=== PATIENT | female | born 1935 | race Caucasian/White ===

== ENCOUNTER → 2017-01-20 | Outpatient (CLI) | payer MEDICARE, BC ==
[~2017-01-20] MED LIST: ALPR0.5T3 PO; ASPI81 PO; BIOTCAP PO; FISH1000 PO; FLUO20TA20 PO; LORTA5 PO; MELA5CAP2 PO; PRIL40CA PO; REDPOW2 PO; VITA-13 PO
--- NOTE | 2017-01-24 09:52 | RSPPFT ---
DATE OF PROCEDURE: 01/20/17 COMMENTS: VOLUMES DYNAMIC: FVC and FEV1 normal. STATIC: RV, TLC low normal. FLOWS: FEV1% normal; FEF 25-75 normal. DIFFUSION: Mildly reduced. FLOW VOLUME LOOP: Terminal airflow obstruction. IMPRESSION: Lung volumes are actually normal although on the low normal side. Diffusion is mildly reduced. There is no significant airways obstruction although, there is a slight flattening of the terminal portion of the flow volume loop. The clinical diagnosis is dyspnea. The reduction in diffusion is the only significant abnormality. Clinical correlation is required as to its significance.
== END ==
LOC: PHRSP 08:37
PROVIDERS: ATTEND Family Medicine
DX: R06.00 Dyspnea, unspecified (principal)
CPT/HCPCS: 94010; 94726; 94729

== ENCOUNTER 2017-02-19 13:45 | Emergency (ER) | payer MEDICARE, BC ==
[~2017-02-19] VITALS: Ht 162.6 cm; Wt 76.2 kg
[2017-02-19 13:49] VITALS: BP 149/83; PULSE 88; RESP 16; O2SAT 95
--- NOTE | 2017-02-19 14:42 | PD ---
HPI Chief Complaint: Injury Time Seen by Provider: 14:34 Travel History International Travel<30 days: No Contact w/Intl Traveler<30days: No Traveled to known affect area: No History of Present Illness HPI 81 year-old female presents to the emergency room for evaluation of left knee and howe pain after trip and fall yesterday. Patient tripped in her driveway on a ledge and fell forward landing on her bilateral knees and shins. She adamantly denies hitting her head or loss of consciousness. Denies neck pain, back pain, hip pain, upper extremity pain, or right leg pain. States pain is localized to the left distal knee. Pain is worse with any range of motion of the left knee and when she bears weight. It improves when still. She took Tylenol this morning for pain and states it improved her symptoms slightly. 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) Diabetes: No Diminished Hearing: No Endocrine: No Glaucoma: No Genitourinary: No Headaches: No Hepatitis: No Hiatal Hernia: No Hypertension: No Immune Disorder: No Kidney Stones: No Medical other: Yes (hx of reflux,stroke in 2002,arthritis,CLL) Musculoskeletal: Yes Neurologic: No Psychiatric: No Reproductive: No Respiratory: Yes ( asthma and hx of legionare disease) Immunizations Current: Yes Migraines: No Myocardial Infarction: No Radiation Therapy: No Renal Failure: No Seizures: No Sickle Cell Disease: No Sleep Apnea: No Thyroid Disease: No Ulcer: No Tetanus Vaccination: < 5 Years Influenza Vaccination: Yes Menopausal: Yes Past Surgical History Abdominal Surgery: No AICD: No Appendectomy: No Arteriovenous Shunt: No Cardiac Surgery: No Cholecystectomy: No Ear Surgery: No Endocrine Surgery: No Eye Surgery: Yes (margie cataract removal) Genitourinary Surgery: No Gynecologic Surgery: Yes (hysterectomy) Hysterectomy: Yes Insulin Pump: No Joint Replacement: No Oral Surgery: Yes (ROOT CANALS (2)) Pacemaker: No Thoracic Surgery: Yes (MASTECTOMY RIGHT BREAST) Other Surgery: Yes Social History Alcohol Use: Yes (OCCAISIONAL) Tobacco Use: No Substance Use: No Allergies-Medications (Allergen,Severity, Reaction): Coded Allergies: Iodine (Verified Allergy, Severe, CARDIAC, 02/19/17) Iopamidol (ISOVUE) (Verified Allergy, Unknown, PT PREMEDICATED FOR PRIOR RASH C IV CONT, 02/19/17) Reported Meds & Prescriptions Reported Meds & Active Scripts Active Hydrocodone/Acetaminophen 5 mg/325 mg 1 Tab 1 Tab PO Q6H PRN Reported Biotin 5000 (Biotin) Cap 1 Cap PO DAILY Vitamin D3 (Cholecalciferol) 1,000 Unit Chw 1,000 Unit PO DAILY Melatonin 5 Mg Cap 10 Mg PO HS Alprazolam 0.5 Mg Tab 0.5 Mg PO BID PRN Fluoxetine Hcl (Fluoxetine HCl) 20MG Cap 40 Mg PO DAILY Prilosec 40 mg cap (Omeprazole) 40 Mg Cap 40 Mg PO DAILY Red Yeast Rice (Red Yeast Rice Extract (Bulk)) Rice Pow 1 Tab PO DAILY Fish Oil 1,000 Mg Cap 1,000 Mg PO DAILY Aspirin 81 Mg Tab 81 Mg PO DAILY Review of Systems Except as stated in HPI: all other systems reviewed are Neg Physical Exam Narrative GENERAL: Well-nourished, well-developed female in no acute distress. Afebrile. SKIN: Focused skin assessment warm/dry. Large areas of ecchymosis on bilateral tibias. HEAD: Normocephalic. Atraumatic. EYES: No scleral icterus. No injection or drainage. NECK: Supple, trachea midline. No JVD or lymphadenopathy. CARDIOVASCULAR: Regular rate and rhythm without murmurs, gallops, or rubs. RESPIRATORY: Breath sounds equal bilaterally. No accessory muscle use. EXTREMITY: Left knee is tender to palpation at the anterior distal portion. Patient can flex the left knee to approximately 45. Moderate edema of the left anterior tibia. Moderately tender to palpation. 2+ dorsalis pedis pulse in the left leg. No tenderness to palpation of the ankle or foot. Full any motion of the left ankle, foot, and hip. Data Data Last Documented VS Vital Signs Date Time Temp Pulse Resp B/P Pulse Ox O2 Delivery O2 Flow Rate FiO2 02/19/17 14:05 20 02/19/17 13:49 88 149/83 95 Orders Knee, Complete (4vws) (02/19/17 ) Tibia/Fibula (Ap/Lat) (02/19/17 ) [facility] Medical Decision Making Medical Screen Exam Complete: Yes Emergency Medical Condition: Yes Medical Record Reviewed: Yes Differential Diagnosis Contusion versus fracture versus lesion versus sprain versus strain Narrative Course 81-year-old female presents to the emergency room for evaluation of left knee pain after trip and fall yesterday. Patient denies any other injury. Adamantly denies hitting her head or loss of consciousness. Physical exam reveals left knee is tender to palpation at the anterior distal portion. Patient can flex the left knee to approximately 45. Moderate edema of the left anterior tibia. Moderately tender to palpation. 2+ dorsalis pedis pulse in the left leg. No tenderness to palpation of the ankle or foot. Full any motion of the left ankle, foot, and hip. She has been able to ambulate short distances with a limp. X-ray is negative for acute bony abnormality. Patient was placed in Daniel wrap. She'll be discharged with orthopedic instructions and told to follow up with the primary care physician or return to the emergency room for worsening symptoms. She understands and agrees to plan. Diagnosis Primary Impression: Contusion of left lower leg Qualified Code: S80.12XA - Contusion of left lower leg, initial encounter Referrals: Primary Care Physician Patient Instructions: Contusion in Adults (ED), General Instructions Additional Instructions: Rest and drink plenty of fluids. Elevate to reduce swelling. Take Tylenol as directed, as needed for pain. Apply ice to the affected area for 20 minutes at a time, as needed for pain and swelling. Follow-up with a primary care physician. Return to the emergency room for worsening symptoms. Disposition: 01 DISCHARGE HOME Condition: Stable Ann Gonzalez February 19, 2017 14:42
--- NOTE | 2017-02-19 15:40 | RADHPO ---
EXAM DATE/TIME: 02/19/2017 14:51 [facility] COMPARISON: No previous studies available for comparison. INDICATIONS : Fell, left knee pain MEDICAL HISTORY : None. SURGICAL HISTORY : None. ENCOUNTER: Initial ACUITY: 1 day PAIN SCORE: 5/10 LOCATION: Left knee FINDINGS: Four view examination of the left knee demonstrates no evidence of fracture or dislocation. Bony min eralization is normal. The articular surfaces are intact. The suprapatellar soft tissues have a nor mal configuration. CONCLUSION: 1. No acute findings. Mild osteoarthritis and chondrocalcinosis. Edd Gunn MD on February 19, 2017 at 15:36 Board Certified Radiologist. This report was verified electronically.
--- NOTE | 2017-02-19 15:43 | RADHPO ---
EXAM DATE/TIME: 02/19/2017 14:57 [facility] COMPARISON: No previous studies available for comparison. INDICATIONS : Fell has left knee and upper lower leg pain MEDICAL HISTORY : Leukemia. Lupus. SURGICAL HISTORY : None. ENCOUNTER: Initial ACUITY: 1 day PAIN SCORE: 5/10 LOCATION: Left knee FINDINGS: Two view examination of the left tibia demonstrates no evidence of fracture or dislocation. Bony min eralization is normal. The soft tissue structures are intact. CONCLUSION: Normal examination for a patient of this age. Edd Gunn MD on February 19, 2017 at 15:40 Board Certified Radiologist. This report was verified electronically.
== END 2017-02-19 16:09 | disposition home or self-care (01) ==
LOC: PHEFT 13:45
DX: S80.12XA Contusion of left lower leg, initial encounter (principal); E78.00 Pure hypercholesterolemia, unspecified; Z86.73 Personal history of transient ischemic attack (TIA), and cerebral infarction without residual deficits; W17.89XA Other fall from one level to another, initial encounter; Y93.9 Activity, unspecified; Y92.9 Unspecified place or not applicable; Y99.9 Unspecified external cause status
CPT/HCPCS: 73564; 73590; 99283

== ENCOUNTER 2017-11-06 14:33 | Emergency (ER) | payer MEDICARE, BC ==
[2017-11-06] MEDS: PROCHLORPERAZINE INJ 10 MG/2 ML VIAL IVP (15:54)
[2017-11-06] MEDS: SODIUM CHLORIDE 0.9% FLUSH 10 ML FLUSH IVF (15:54)
[2017-11-06] MEDS: diphenhydrAMINE HCL 50 MG/ML VIAL IVP (15:54)
== END 2017-11-06 17:15 | disposition home or self-care (01) ==
LOC: PHED 14:33
DX: G44.201 Tension-type headache, unspecified, intractable (principal); E78.00 Pure hypercholesterolemia, unspecified; K21.9 Gastro-esophageal reflux disease without esophagitis; J44.9 Chronic obstructive pulmonary disease, unspecified
CPT/HCPCS: 70450; 96374; 96375; 99285-25